=== PATIENT | female | born 1965 | race Caucasian/White ===

== ENCOUNTER → 2017-03-30 | Outpatient (CLI) | payer OTHER ==
[~2017-03-30] MED LIST: ALBU8.5H12 IH; CALC-41 PO; CALC500T6 PO; CEPH500C24 PO; FLU44R INH; LEVO1TAB45 PO; MONT10TA PO; MULT-1372 PO; SCOT TD; VITA-200 PO; [UNRECOGNIZED DRUG - OTHER] PO
--- NOTE | 2017-03-30 08:59 | RADIOLOGY IMAGING REPORT ---
FACILITY: [facility] PATIENT NAME: Radha Garcia : 1965 MR: [id number] V: [id number] EXAM DATE: ORDERING PHYSICIAN: MAYRA VARELA TECHNOLOGIST: [facility] Patient: Radha Garcia : 1965 Visit/Account:[id number] Date of Sevice: 03/30/2017 DEXA Scan Clinical history: Osteopenia. Comparison: None available. LUMBAR SPINE: The bone mineral density (BMD) measured from L1-L4 correlates with a Z-score 0.3 and a T-score of -0. 3 which is Normal as defined by the World Health Organization. The corresponding risk of fracture in the lumbar spine is Not increased compared with a young adult reference population. HIP: Bone mineral density (BMD) measured in the Left total hip region correlates with a Z-score -0.3 and a T-score of -0.9 which is Normal as defined by the World Health Organization. The corresponding risk of fracture in the hip is 1-2 compared with a young adult reference population. Bone mineral density (BMD) measured in the Femoral Neck region measures 0.796 g/cm2. Impression: 1. Lumbar spine: Normal. 2. Left Hip: Normal. 3. Femoral Neck: Bone Mineral Density is 0.796 g/cm2 The next DEXA scan of this patient should include the following sites: L1-L4 and the left hip. FRAX? WHO Fracture Risk Assessment Tool link: <http://www.shef.ac.uk/FRAX/tool.jsp?locationValue=9> PLEASE NOTE: 1) The World Health Organization defines low BMD as follows: T-score Normal > -1 Osteopenia < -1 and > -2.5 Osteoporosis < -2.5 without fractures Established osteoporosis < -2.5 with fractures 2) In general, you may wish to consider: Diagnosis Treatment Follow-up DEXA Normal BMD Prevention 2-3 years Osteopenia Prevention/therapy 1-2 years Osteoporosis Therapy Yearly 3) Fracture risk estimated from the T-score is more accurate for vertebral fractures (often spontane ous) than for hip fractures. Hip Report Dictated By: Sai Wilde MD at 03/30/2017 8:50 AM Report E-Signed By: Sai Wilde MD at 03/30/2017 8:53 AM WSN:ROSIE-BEVERLY
--- NOTE | 2017-03-31 08:24 | RADIOLOGY IMAGING REPORT ---
FACILITY: [facility] PATIENT NAME: LENCHO CABALLERO : [id number] MR: [id number] V: [id number] EXAM DATE: ORDERING PHYSICIAN: MAYRA VARELA TECHNOLOGIST: Michelle Campos PROCEDURE:BILATERAL DIGITAL SCREENING MAMMOGRAM WITH CAD ASSISTED INTERPRETATION AND 3D BREAST TOMOSYNTHESIS. COMPARISON:Prior mammograms dated 02/18/16, 01/29/15, 01/22/14, 01/16/13 and 01/11/12. INDICATIONS:SCREENING. FINDINGS: Moderately dense fibroglandular tissue is seen throughout the breasts. The parenchymal pattern has remained stable when allowing for difference in mammographic technique and patient positioning. There is no evidence of malignant appearing mass, malignant appearing calcification or other secondary sign of malignancy in either breast. DIAGNOSTIC CATEGORY 1--NEGATIVE. RECOMMENDATIONS: ROUTINE MAMMOGRAM AND CLINICAL EVALUATION. IMPRESSION: Bi-RADS 1: No significant abnormality is seen. Images were reviewed with R2CAD and 3D breast tomosynthesis. Dictated by: Agnieszka Brock M.D. on 03/30/2017 at 9:54 Transcribed by: RODRIGUEZ on 03/30/2017 at 17:46 Approved by: Agnieszka Brock M.D. on 03/31/2017 at 8:23 [facility]
== END ==
LOC: MAMO 03-03 08:07
PROVIDERS: ATTEND Nurse Practitioner Family
DX: Z13.820 Encounter for screening for osteoporosis (principal); Z12.31 Encounter for screening mammogram for malignant neoplasm of breast
CPT/HCPCS: 77063; 77067; 77080

== ENCOUNTER 2017-05-11 00:09 | Day surgery (SDC) | payer OTHER ==
[~2017-05-11] VITALS: Ht 157.5 cm; Wt 61.2 kg
[2017-05-11 06:00] VITALS: BP 113/78
[2017-05-11] MEDS ORDERED: MIDAZOLAM 2 MG/2 ML VIAL IVP PRN (06:30)
[2017-05-11] MEDS ORDERED: NORMOSOL R SOLN(*) 1000 ML BAG 1,000 ML IV PRN (06:30)
[2017-05-11] MEDS ORDERED: LIDOCAINE/SOD BICARB 8.4% SYR ID ONE (06:30)
[2017-05-11] MEDS ORDERED: PROPOFOL EMUL(*) 10MG/ML 20 ML 20 ML ONE ×2 (07:03→07:40)
[2017-05-11 07:57] VITALS: BP 102/69
[2017-05-11 08:00] VITALS: BP 100/70
--- NOTE | 2017-05-11 08:03 | Short(Outpt) Discharge Summary ---
Discharge Summary Reason for Hosp/Final Diag: (1) Colon cancer screening Status: Chronic Hospital Course & Plan: Colonoscopy with polypectomy x1 completed without problems. Departure Discharge to: Home, Self Care Discharge Instructions Home Meds Active Scripts Scopolamine (TRANSDERM-SCOP) 1.5 Mg Patch, 1 PATCH.72H TD ONCE, #1 PATCH 0 Refills Apply to the skin overyling the bone behind your earlobe the morning of your procedure. Remove in 24 hours. Prov:JUDITH MERCHANT MD 02/01/17 Reported Medications [Relizen] No Conflict Check, 2 TAB PO QDAY 02/02/17 Calcium Carbonate (CALCIUM) Unknown Strength Tablet, PO QDAY 02/02/17 Vitamin E Acetate (VITAMIN E) 400 Unit Capsule, 400 UNIT PO QDAY, CAPSULE 02/02/17 Fluticasone Prop 44 Mcg (FLOVENT HFA 44 MCG) 44 Mcg Inha, INH DAILY 10/16/14 Multivitamin (DAILY VALUE) 1 Each Tablet, 1 EACH PO DAILY 10/16/14 Montelukast Sodium (SINGULAIR) 10 Mg Tablet, 1 TAB PO QDAY, TAB 10/16/14 Albuterol Sul Hfa 90 Mcg 8 Gm (VENTOLIN HFA 90 MCG 8 GM) 8.5 Gm Hfa.aer.ad, 1 PUFF IH DAILY, INHALER 10/16/14 Diet: Regular Activity: As Tolerated Special Instructions: Your colonoscopy was completed without any problems and your prep was excellent (Good Job!!). I removed a single polyp from your rectum and it was sent to pathology. My office will call you in the next week and let you know what the polyp is and when your next colonoscopy should be (either 5 or 10 years). JUDITH MERCHANT MD May 11, 2017 08:03
[2017-05-11 08:15] VITALS: BP 96/60
[2017-05-11 08:30] VITALS: BP 115/71
[2017-05-11 08:31] VITALS: BP 112/75
== END 2017-05-11 08:40 | disposition home or self-care (01) ==
LOC: OR 00:09
PROVIDERS: ATTEND Surgery
DX: Z12.11 Encounter for screening for malignant neoplasm of colon (principal); D12.8 Benign neoplasm of rectum
CPT/HCPCS: 00811; 45385; 88305; J2704

== ENCOUNTER → 2018-04-20 | Outpatient (CLI) | payer OTHER ==
--- NOTE | 2018-04-21 09:46 | RADIOLOGY IMAGING REPORT ---
FACILITY: [facility] [place] PATIENT NAME: LENCHO CABALLEOR : [id number] MR: [id number] V: [id number] EXAM DATE: ORDERING PHYSICIAN: MAYRA VARELA TECHNOLOGIST: Gabriella Obrien PROCEDURE:BILATERAL DIGITAL SCREENING MAMMOGRAM WITH CAD ASSISTED INTERPRETATION & 3D TOMOSYNTHESIS COMPARISON:Prior mammograms dated 02/18/16, 01/29/15, 01/22/14, 01/16/13 INDICATIONS:SCREENING FINDINGS: The breasts are heterogeneously dense which can obscure small masses. Most of the parenchymal pattern has remained stable allowing for difference in mammographic technique & patient positioning. There is a small focal asymmetry in the upper portion of the Left breast on the Left MLO view junction of the middle & posterior thirds for which spot compression view is recommended. DIAGNOSTIC CATEGORY 0--INCOMPLETE: NEED ADDITIONAL IMAGING EVALUATION. RECOMMENDATIONS: ADDITIONAL MAMMOGRAPHIC VIEWS REQUIRED: LEFT BREAST. IMPRESSION: BIRADS 0: Incomplete, need additional imaging evaluation. Additional views Left breast recommended as described. Dictated by: Agnieszka Brock M.D. on 04/20/2018 at 8:43 Transcribed by: KRISTY on 04/20/2018 at 14:08 Approved by: Agnieszka Brock M.D. on 04/21/2018 at 9:45 [facility]
== END ==
LOC: MAMO 00:47
PROVIDERS: ATTEND Nurse Practitioner Family
DX: Z12.31 Encounter for screening mammogram for malignant neoplasm of breast (principal); R92.8 Other abnormal and inconclusive findings on diagnostic imaging of breast
CPT/HCPCS: 77063; 77067

== ENCOUNTER → 2018-05-10 | Outpatient (CLI) | payer OTHER ==
--- NOTE | 2018-05-12 09:30 | RADIOLOGY IMAGING REPORT ---
FACILITY: [facility] [place] PATIENT NAME: LENCHO CABALLERO : [id number] MR: [id number] V: [id number] EXAM DATE: ORDERING PHYSICIAN: MAYRA VARELA TECHNOLOGIST: Gabriella Obrien PROCEDURE:LEFT DIGITAL DIAGNOSTIC MAMMOGRAM WITH CAD ASSISTED INTERPRETATION & 3D TOMOSYNTHESIS COMPARISON:Prior mammograms 04/20/18, 03/30/17, 02/18/16, 01/29/15, 01/22/14, 01/16/13, 01/11/12. INDICATIONS:FURTHER EVAL FINDINGS: The Left breast is heterogeneously dense which can obscure small masses. The patient returned for Spot compression view in the Left MLO projection. The small focal asymmetry in the upper portion of the Left breast on the recent Left MLO view appeared freely compressible and apparently represented a summation shadow. DIAGNOSTIC CATEGORY 1--NEGATIVE. RECOMMENDATIONS: ROUTINE MAMMOGRAM AND CLINICAL EVALUATION. IMPRESSION: BIRADS 1: Negative. No significant abnormality of the Left breast is seen. Dictated by: Agnieszka Brock M.D. on 05/10/2018 at 10:44 Transcribed by: JAY on 05/12/2018 at 8:51 Approved by: Agnieszka Brock M.D. on 05/12/2018 at 9:29 [facility]
== END ==
LOC: MAMO 09:52
PROVIDERS: ATTEND Nurse Practitioner Family
DX: R92.2 Inconclusive mammogram (principal)
CPT/HCPCS: 77061; 77065